=== PATIENT | male | born 1995 | race Caucasian/White ===

== ENCOUNTER 2022-08-01 13:20 | Emergency (ER) | payer SELFPAY ==
[2022-08-01 13:24] VITALS: BP 132/85; PULSE 87; RESP 16; TEMP 37.1; O2SAT 99
[2022-08-01] MEDS: SODIUM CHLORIDE 0.9% IV 2,000 ML 999 ML IV CONT (13:55)
[2022-08-01] MEDS: hydrOXYzine HCL 25 MG TABLET PO (13:55)
--- NOTE | 2022-08-01 14:05 | ED.GENADULT ---
HPI - General Adult General Chief complaint: Environmental Exposure Stated complaint: anxiety, dehydration? Time Seen by Provider: 08/01/22 13:33 History of Present Illness HPI narrative: This is a 27-year-old male with no significant past medical history, who is concerned he may be anxious and dehydrated. 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 He has felt lightheaded and has had paresthesias. Related Data Allergies Allergy/AdvReac Type Severity Reaction Status Date / Time clarithromycin Allergy Mild NAUSEA Verified 11/13/18 22:04 Review of Systems Review of Systems: CONSTITUTIONAL: Denies fever, chills, or sweats. CARDIOVASCULAR: Denies chest pain, palpitations, or edema. RESPIRATORY: Denies cough or dyspnea. GASTROINTESTINAL: Denies abdominal pain, nausea, vomiting, or diarrhea. GENITOURINARY: Denies dysuria or hematuria. SKIN: Denies rash or itching. MUSCULOSKELETAL: Denies back pain, joint pain, or myalgia. NEUROLOGIC: Bilateral paresthesias denies headache, numbness, dizziness, or weakness. PSYCHIATRIC: Anxiety denies depression. [facility] Past Medical History Medical History No significant past medical history Surgical History Surgical History No significant past surgical history Social History Social History (Updated 08/01/22 @ 14:08 by Redd Lee MD) Smoking status: Never smoker Alcohol intake: never Substance use: never Lack of Transportation: No Current Housing: I Have Housing Currently Unemployed: No Exam Narrative: GENERAL: Well-developed, well-nourished, and in no acute distress. HEAD: Normocephalic, atraumatic. EYES: PERRLA and EOMI. ENT: Nares clear, no rhinorrhea or epistaxis. Mucous membranes moist. Oropharynx without tonsillar hypertrophy exudate or other lesions. CHEST: Clear to auscultation. No respiratory distress. No wheezes rales or rhonchi HEART: Regular rate and rhythm. No murmur heard. Normal peripheral pulses. ABDOMEN: Soft, nontender, nondistended, normal active bowel sounds. EXTREMITIES: Normal range of motion. No edema. SKIN: Warm, dry, no rash. NEURO: No focal deficits. Alert and oriented x3. PSYCH: Appears anxious Course Course Emergency Course: 14:40 - On reevaluation, the patient states he feels much improved. Will discharge with hydroxyzine and recommendation for primary care follow-up. Discussed return and emergency precautions including signs/symptoms of respiratory distress, ACS and suicidal ideations. The patient voiced understanding and is comfortable with the plan. All questions answered to his satisfaction. Vital Signs Vital signs: Vital Signs Temperature 98.8 F 08/01/22 13:24 Pulse Rate 87 08/01/22 13:24 Respiratory Rate 16 08/01/22 13:24 Blood Pressure 132/85 08/01/22 13:24 Pulse Oximetry 99 08/01/22 13:24 Temperature 98.8 F 08/01/22 13:24 Pulse Rate 87 08/01/22 13:24 Respiratory Rate 16 08/01/22 13:24 Blood Pressure 132/85 08/01/22 13:24 Pulse Oximetry 99 08/01/22 13:24 Medical Decision Making MDM Narrative Medical decision making narrative: Plan: Anxiolysis, IV fluids, reassess Differential Diagnosis Differential Diagnosis: Anxiety, dehydration, other Vital Signs Vital Signs: Vital Signs Temperature 98.8 F 08/01/22 13:24 Pulse Rate 87 08/01/22 13:24 Respiratory Rate 16 08/01/22 13:24 Blood Pressure 132/85 08/01/22 13:24 Pulse Oximetry 99 08/01/22 13:24 Temperature 98.8 F 08/01/22 13:24 Pulse Rate 87 08/01/22 13:24 Respiratory Rate 16 08/01/22 13:24 Blood Pressure 132/85 08/01/22 13:24 Pulse Oximetry 99 08/01/22 13:24 Discharge Plan Discharge Clinical Impression: Anxiety, Dehydration Patient Disposition: Home, Self-Care Conditi
== END 2022-08-01 15:07 | disposition home or self-care (01) ==
PROVIDERS: Emergency Provider Preventive Medicine Aerospace Medicine
DX: E86.0 Dehydration (principal); F41.9 Anxiety disorder, unspecified
CPT/HCPCS: 96360; 99283; A9270; J7030